=== PATIENT | female | born 1960 | race Two or more races ===

== ENCOUNTER 2018-03-12 11:32 | Outpatient (CLI) | payer OTHER | END 2018-03-12 11:41 | disposition home or self-care (01) | LOC: SONOGRAMA 11:32 | DX: M25.512 Pain in left shoulder (principal); M75.42 Impingement syndrome of left shoulder ==

== ENCOUNTER 2024-03-17 10:25 | Outpatient (CLI) | payer OTHER | END 2024-03-17 10:33 | disposition home or self-care (01) | LOC: RAD 10:25 | PROVIDERS: ATTEND Orthopaedic Surgery | DX: M25.531 Pain in right wrist (principal); M25.532 Pain in left wrist ==

== ENCOUNTER 2024-03-18 08:48 | Outpatient (CLI) | payer OTHER | END 2024-03-18 09:01 | disposition home or self-care (01) | LOC: RAD 08:48 | PROVIDERS: ATTEND Orthopaedic Surgery | DX: S52.572A Other intraarticular fracture of lower end of left radius, initial encounter for closed fracture (principal) ==

== ENCOUNTER 2024-03-24 09:38 | Outpatient (CLI) | payer OTHER | END 2024-03-24 09:46 | disposition home or self-care (01) | LOC: RAD 09:38 | PROVIDERS: ATTEND Orthopaedic Surgery | DX: S52.572A Other intraarticular fracture of lower end of left radius, initial encounter for closed fracture (principal) ==

== ENCOUNTER 2024-03-24 11:20 | Outpatient (CLI) | payer OTHER | END 2024-03-24 11:38 | disposition home or self-care (01) | LOC: TOM 11:20 | PROVIDERS: ATTEND Orthopaedic Surgery | DX: S52.572A Other intraarticular fracture of lower end of left radius, initial encounter for closed fracture (principal) ==

== ENCOUNTER 2024-05-07 09:07 | Outpatient (CLI) | payer OTHER | END 2024-05-07 09:14 | disposition home or self-care (01) | LOC: RAD 09:07 | PROVIDERS: ATTEND Orthopaedic Surgery | DX: S52.572D Other intraarticular fracture of lower end of left radius, subsequent encounter for closed fracture with routine healing (principal) ==

== ENCOUNTER 2024-06-10 13:13 | Outpatient (CLI) | payer OTHER | END 2024-06-10 13:26 | disposition home or self-care (01) | LOC: RAD 13:13 | PROVIDERS: ATTEND Orthopaedic Surgery | DX: M79.641 Pain in right hand (principal); M65.341 Trigger finger, right ring finger ==